=== PATIENT | female | born 1950 | race Caucasian/White ===

== ENCOUNTER 2016-09-22 16:17 | Emergency (ER) | payer OTHER ==
[~2016-09-22] VITALS: Ht 157.5 cm; Wt 70.0 kg
[2016-09-22 16:27] VITALS: Ht 157.5 cm; Wt 70.0 kg
--- NOTE | 2016-09-22 17:32 | EN ---
Date/Time of Note Date/Time of Note DATE: 09/22/16 TIME: 17:31 ER Progress Note This is a 66-year-old female with a history of chronic pain presenting to the emergency department complaining of bilateral hip pain and cervical pain. Patient states that she is getting a hip surgery the first week of September. Patient has already had imaging done. Patient was evaluated RME. She is here for pain medication, patient will be sent to ER to for further evaluation and management. JACINDA CUTLER PA-C Sep 22, 2016 17:32
[2016-09-22] MEDS ORDERED: HYDROCODONE/APAP (5/325) TAB PO STA (18:45)
[2016-09-22] MEDS ORDERED: KETOROLAC 30 MG INJ IM STA (18:45)
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
--- NOTE | 2016-09-22 19:40 | RADRPT ---
PROCEDURE: XR Cervical Spine. CLINICAL INDICATION: Neck pain. TECHNIQUE: Three views of the cervical spine were performed. Frontal, lateral, and AP open-mouth o dontoid. The images were reviewed on a PACS workstation. COMPARISON: None. FINDINGS: There is normal stature and alignment of the vertebrae. There is no fracture. There is no lytic or blastic lesion. There are degenerative changes with disk space narrowing and osteophytes at C4-5, C5-6, and C6-7. The prevertebral soft tissues are normal. IMPRESSION: 1. Degenerative changes at C4-5, C5-6 and C6-7. 2. Otherwise unremarkable images of the cervical spine. RPTAT: QQ .Arnulfo Staton MD, MD Date Time Electronically viewed and signed by .Arnulfo Staton MD, MD on 09/22/2016 19:40 .R/
--- NOTE | 2016-09-22 19:54 | RADRPT ---
PROCEDURE: XR Lumbar Spine. CLINICAL INDICATION: Back pain. TECHNIQUE: 3 views. Frontal, lateral, and lateral collimated view of L5-S1. COMPARISON: No prior studies are available for comparison. FINDINGS: There is normal stature and alignment of the vertebrae. There is no fracture. There is no lytic or blastic lesion. There are degenerative changes with small osteophytes throughout. There is disk space narrowing at L3-4, L4-5, and L5-S1. The paravertebral soft tissues are unremarkable. IMPRESSION: 1. Degenerative changes as described above. 2. Otherwise unremarkable images of the lumbar spine. RPTAT: QQ .Arnulfo Staton MD, MD Date Time Electronically viewed and signed by .Arnulfo Staton MD, MD on 09/22/2016 19:54 .R/
[2016-09-22] MEDS ORDERED: HYDR-906 PO (20:10)
== END 2016-09-22 20:22 | disposition home or self-care (01) ==
LOC: FTE 16:17
DX: M16.11 Unilateral primary osteoarthritis, right hip (principal); M16.12 Unilateral primary osteoarthritis, left hip; M25.552 Pain in left hip; M25.551 Pain in right hip
CPT/HCPCS: 72040; 72100; 96372; 99284; J1885

== ENCOUNTER 2017-07-03 20:28 | Emergency (ER) | payer OTHER ==
[~2017-07-03] VITALS: Ht 157.5 cm; Wt 59.0 kg
[~2017-07-03 20:28] MED LIST: HYDR-906 PO
[2017-07-03 20:30] VITALS: Ht 157.5 cm; Wt 59.0 kg
--- NOTE | 2017-07-03 21:12 | ERD ---
ER Documentation Chief Complaint Chief Complaint LEFT 2" LAC FROM KITCHEN KNIFE ON PALM JUST ABOVE THUMB HPI Patient presents to our status post lacerationto left hand. Patient was cutting wax with a knife when the laceration was sustained. Denies numbness, tingling, loss of range of motion. Pain is 7/10 and worse with movement. Last tetanus vaccination 4 years ago. Denies diabetes. History of ADHD, bipolar and depression. No current medications. Denies fever. Denies trauma to other areas of the body. Patient has no other complaints and describes no other associated manifestations. Nursing notes have been reviewed and are consistent with history given. ROS All systems reviewed and are negative except as per history of present illness. Medications Home Meds Active Scripts Hydrocodone/Acetaminophen ([place] 5-325 Tablet) 1 Each Tablet, 1 TAB PO Q6H Y for PAIN, #7 TAB Prov:NAVIN JONES PA-C 07/03/17 Hydrocodone/Acetaminophen ([place] 5-325 Tablet) 1 Each Tablet, 1 TAB PO Q6H Y for PAIN, #7 TAB Prov:JACINDA CUTLER PA-C 09/22/16 Allergies Allergies: Coded Allergies: No Known Allergy (Unverified , 07/03/17) PMhx/Soc Anesthesia Reaction: No Hx Neurological Disorder: No Hx Respiratory Disorders: No Hx Cardiac Disorders: No Hx Psychiatric Problems: Yes (anxiety, depression) Hx Miscellaneous Medical Probl: Yes (arthritis) Hx Alcohol Use: No Hx Substance Use: No Hx Tobacco Use: No Physical Exam Vitals Vital Signs Date Time Temp Pulse Resp B/P Pulse Ox O2 Delivery O2 Flow Rate FiO2 07/03/17 20:30 97.7 82 20 142/67 96 Physical Exam Const: Healthy-appearing. Well-nourished. Well-developed. No acute distress. Skin: 4-5 cm laceration between the first and second digit of the left hand. Ext: No cyanosis or edema noted. Head: Normocephalic. Atraumatic. Eyes: Non-injected; No scleral erythema, or discharge. EOMI and ROMULO bilaterally. Ears: Normal External Ears, EACs clear, TM normal bilaterally without erythema. Nose: Normal nose without discharge, septal deviation, or sinus tenderness. Oral: No oral edema visualized. Mucous membranes moist and pink. Neck: No cervical lymphadenopathy, or masses. Trachea midline. Supple ~ No meningismus. Pulm: Good air movement in upper and lower respiratory tracts. No dyspnea, stridor, tripoding or drooling. Clear to auscultation bilaterally. Cardio: Regular rate and rhythm. No JVD grossly observed. Radial and posterior tibial pulses 2+ bilaterally. No cyanosis. Capillary refill less than 2 seconds. Abd: Soft, non tender, non distended. No guarding. Normal bowel sounds. MS: Normal motor strength, normal tone with gross examination. Back: No midline or flank tenderness. Neur: Neurovascularly intact bilaterally. Awake, alert and oriented x3. Results 24 hrs Current Medications Medications (Trade) Dose Ordered Sig/Sheron Route PRN Reason Start Time Stop Time Status Last Admin Dose Admin Lidocaine (Xylocaine 1% (Mdv) 20 ml) 20 ml ONCE ONCE SC 07/03/17 21:30 07/03/17 21:31 DC Procedures/MDM 67-year-old female presents with chief complaint of laceration of left hand between first and second digit. Neurovascularly intact. Tendons intact. X- ray obtained and read as unremarkable. Wound irrigated with normal saline by staff. 4 mL of lidocaine 1% without epi was used to anesthetize the area. 7 simple sutures with 6-0 nylon placed. No complications. Good approximation. Tetanus vaccination up-to-date. Neurovascularly intact and tendons intact after procedure. No suspicion for infection. No indication for antibiotics at this time. Area was cleaned. It TAC applied. Bandage applied. MV intact and tendons intact after application of bandages. No suspicion for neurovascular compromise or bony pathology. Most likely diagnosis laceration of left hand between the first and second digit. Patient is stable and appropriate for discharge. I recommended follow-up in 2 days for wound evaluation. Departure Diagnosis: Primary Impression: Laceration Condition: Stable Additional Instructions: You were seen in the emergency department for your laceration which has been closed. Your wound has been cleaned and covered with antibiotic ointment. Please keep this dressing on for 12 hours. After 12 hours take the dressing down and gently clean the wound with ONLY soap and water. If you were given antibiotics, complete the course of treatment as prescribed. Look for signs of infection such as increasing redness, swelling, pain or drainage of pus (yellow/ green fluid). If you see signs of infection, please return to the emergency department immediately. If there are no signs of infection, cover your wound with antibiotic ointment and reapply a dressing. You will form a scar. To keep from scarring too dark, keep your wound covered and out of the sun for the next 6-12 months. Consider using OTC anti-scar creams such as Mederma. Return to the ED for a wound check in 2 days and again for suture removal in -. NAVIN JONES PA-C Jul 03, 2017 21:11
[2017-07-03] MEDS ORDERED: LIDOCAINE 1% (MDV) 20 ML INJ SC ONE (21:30)
--- NOTE | 2017-07-03 21:40 | RADRPT ---
PROCEDURE: Left hand radiograph CLINICAL INDICATION: Trauma TECHNIQUE: Single neutral x-ray left hand COMPARISON: None FINDINGS: There is laceration of the soft tissues between the first and second digits. No radiopaque foreign b mitch is present. Noted is osteoarthritis of the trapezium - first metacarpal joint. The other joint s paces are intact with anatomic alignment. No fracture other osseous lesion is present. IMPRESSION: Laceration soft tissues left hand without foreign body. Osteoarthritis first carpal-metacarpal joint . .Jeremy Shields MD, MD Date Time Electronically viewed and signed by .Jeremy Shields MD, on 07/03/2017 21:40 .A/
[2017-07-03] MEDS ORDERED: HYDR-906 PO (22:25)
[2017-07-03 22:58] VITALS: BP 126/73; PULSE 59; RESP 20; TEMP 97.7
== END 2017-07-03 23:01 | disposition home or self-care (01) ==
LOC: FTE 20:28
DX: S61.412A Laceration without foreign body of left hand, initial encounter (principal); W26.0XXA Contact with knife, initial encounter; Y92.9 Unspecified place or not applicable